=== PATIENT | male | born 1995 | race African-American/Black ===

== ENCOUNTER 2020-12-26 13:07 | Emergency (ER) | payer MEDICAID ==
[~2020-12-26] VITALS: Ht 185.4 cm; Wt 109.0 kg
[2020-12-26] MEDS ORDERED: FAMO-123 PO (14:57)
[2020-12-26] MEDS ORDERED: FAMOTIDINE 20MG TABLET PO ONE (15:00)
[2020-12-26 15:29] VITALS: BP 135/76
== END 2020-12-26 15:32 | disposition home or self-care (01) ==
LOC: ER 13:07
DX: K21.9 Gastro-esophageal reflux disease without esophagitis (principal)
CPT/HCPCS: 99283

== ENCOUNTER 2022-05-17 09:57 | Emergency (ER) | payer MEDICAID ==
[~2022-05-17] VITALS: Ht 190.5 cm; Wt 115.0 kg
[~2022-05-17 09:57] MED LIST: CYCL10TA21 MT; DOXY100C5 MT; FAMO-123 PO; IBUP-2029 MT; T3 PO
[2022-05-17 10:08] VITALS: BP 147/94
[2022-05-17] MEDS ORDERED: NAPR500T7 MT (10:23)
== END 2022-05-17 10:39 | disposition home or self-care (01) ==
LOC: ER 09:57
DX: Z76.0 Encounter for issue of repeat prescription (principal); M25.512 Pain in left shoulder; Z87.828 Personal history of other (healed) physical injury and trauma
CPT/HCPCS: 99281

== ENCOUNTER 2023-02-26 10:47 | Emergency (ER) | payer MEDICAID ==
[~2023-02-26] VITALS: Ht 190.5 cm; Wt 111.0 kg
[~2023-02-26 10:47] MED LIST changes: +NAPR500T7 MT
[2023-02-26 11:16] VITALS: BP 139/90; PULSE 73; RESP 16; TEMP 98.5; O2SAT 100
[2023-02-26] MEDS ORDERED: CYCL25PO15 MT (12:31)
[2023-02-26] MEDS ORDERED: IBUP-2030 MT (12:31)
== END 2023-02-26 12:47 | disposition home or self-care (01) ==
LOC: ER 10:57
DX: G89.29 Other chronic pain (principal); M54.50 Low back pain, unspecified
CPT/HCPCS: 99281; 99283

== ENCOUNTER 2023-04-19 11:14 | Emergency (ER) | payer MEDICAID ==
[~2023-04-19] VITALS: Ht 182.9 cm; Wt 110.0 kg
[~2023-04-19 11:14] MED LIST changes: +CYCL25PO15 MT; +IBUP-2030 MT
[2023-04-19 11:18] VITALS: O2SAT 100
[2023-04-19] MEDS ORDERED: CEPH500T MT (11:40)
[2023-04-19] MEDS ORDERED: SULF1TAB48 MT (11:40)
[2023-04-19 11:54] VITALS: BP 124/87; PULSE 98; RESP 18; TEMP 98.4
== END 2023-04-19 11:55 | disposition home or self-care (01) ==
LOC: ER 11:14
DX: R10.813 Right lower quadrant abdominal tenderness (principal)
CPT/HCPCS: 99283